=== PATIENT | male | born 1945 | race Caucasian/White ===

== ENCOUNTER 2016-12-21 12:40 | Day surgery (SDC) | payer MEDICARE ==
[~2016-12-21] VITALS: Ht 172.7 cm; Wt 68.0 kg
[~2016-12-21 12:40] MED LIST: 0.9% Sodium Chloride 1,000 ML IV SCH; ASPI-973 PO; ATOR80TA PO; BUPR200T2 PO; CHOL100045 PO; HYDR25TA4 PO; MULT-1018 PO; Sodium Chloride LOK Flush 10 mL Syringe IV PRN; fentaNYL-PF 50 mCg/mL 2 mL Inj IVPUSH PRN
[2016-12-21 13:43] VITALS: BP 135/88; PULSE 79; RESP 16; O2SAT 99
--- NOTE | 2016-12-21 15:08 | PCM.ENDCOL ---
Colonoscopy Date of Service: December 21, 2016 Physician Zach Dozier MD Pre Procedure Diagnosis: Screening Post Procedure Dx & Findings: Polyp hemorrhoids diverticulitis Procedure Colonoscopy PROCEDURE IN DETAIL: Prep adequate Withdrawal time 18 minutes After unremarkable rectal examination the Olympus video colonoscope was inserted patient's anal canal and was advanced to cecum. Landmarks were identified including the ileocecal valve and appendiceal orifice. Scope was withdrawn systematically. Visualized colonic mucosa showed healthy shiny mucosa with normal healthy-appearing vasculature. In the transverse colon, there was 1.5 - 2 cm flat polyp behind a fold. 8 mm of normal saline injected to move the polyp. So we could see the whole polyp. Done successfully. Hot snares used to remove completely. 2 clips deployed. Patient had very small diverticuli from the sigmoid to the ascending colon. The small diverticuli above the sigmoid colon were isolated. They were mostly in the sigmoid colon. In the rectum retroflexion was done which showed hemorrhoids. Anal canal was inspected carefully on the way out and hemorrhoids noted. Impression Polyp 1. Status post complete removal 1.5-2 cm Diverticuli Hemorrhoids Recommendation Repeat colonoscopy 3 years Diverticular diet diet Presedation Assessment Risks and Benefits Informed consent was obtained from the patient after all risks and benefits including but not limited to drug reaction, infection, pain, bleeding, perforation, as well as alternatives were discussed. Patient monitoring Continuous pulse oximetry, cardiac monitoring, blood pressure monitoring, IV access, and oxygen at 2L per nasal cannula. Periprocedural Fentanyl: Fentanyl 100mcg Incrementally Midazolam: Midazolam 4mg Incrementally Complications There were no periprocedural complications identified. Post Procedure Plan Post Procedure Recommendations 1. Restrict activities today. 2. Resume normal activities in the morning. 3. Resume medications. 4. Patient informed of normal post procedure side effects as bloating, drowsiness, blood streaking in the stool. 5. average risk CRCS. If colon polyps come back as: -Hyperplastic- can repeat colonoscopy in 10 years -Tubular adenoma- repeat colonoscopy in 5 years -Tubulovillous/villous adenoma- repeat colonoscopy in 3 years -If any dysplasia- return to clinic as soon as possible 6. Please don't hesitate to call me with any questions. Zach Dozier MD December 21, 2016 15:08
[2016-12-21 15:10] VITALS: BP 157/90; PULSE 70; RESP 14; O2SAT 98
[2016-12-21 15:20] VITALS: BP 138/70; PULSE 78; RESP 14; O2SAT 96
[2016-12-21 15:30] VITALS: BP 145/81; PULSE 85; RESP 16; O2SAT 98
--- NOTE | 2016-12-23 16:23 | PATH ---
SURGICAL PATHOLOGY Attending Physician:Zach Dozier M.D. CASE STATUS: Signed Out PATIENT NAME: FIONA SANDERS PID: [id number] : 1945 DATE COLLECTED:12/21/2016 00:00 SPECIMEN: Colon, Biopsy CLINICAL HISTORY: 1. TRANSVERSE POLYP FINAL DIAGNOSIS: Transverse Colon, Polyp, Biopsy: Multiple portions (greater than 20) of tubular adenoma; negative for high-grade dysplasia. ICD10: K63.5 GROSS DESCRIPTION: The specimen is received in one formalin filled container labeled with the patient's name, sublabeled "transverse polyp" and consists of multiple portions of tissue which aggregate to 1.5 x 0.7 x 0.4 CM. The specimen is entirely submitted in one cassette. 12/22/2016 [facility] ICD-9 CODES: CPT CODES: 1: 08777 Electronically Signed Out Jamaica Schmidt MD [facility] [address], [place] [address] Technical component performed at [facility], [address] [place] [address] Ave[address], [place], [address]
== END 2016-12-21 23:59 | disposition home or self-care (01) ==
LOC: END 12:40
PROVIDERS: ATTEND Internal Medicine
DX: Z12.11 Encounter for screening for malignant neoplasm of colon (principal); D12.3 Benign neoplasm of transverse colon; K57.30 Diverticulosis of large intestine without perforation or abscess without bleeding; K64.8 Other hemorrhoids; Z83.71 Family history of colonic polyps; I10 Essential (primary) hypertension; F32.9 Major depressive disorder, single episode, unspecified; E78.5 Hyperlipidemia, unspecified; R73.03 Prediabetes; Z87.891 Personal history of nicotine dependence; Z85.46 Personal history of malignant neoplasm of prostate; Z79.82 Long term (current) use of aspirin
CPT/HCPCS: 45381; 45385; 99153; G0500; J7030